=== PATIENT | male | born 1945 | race Caucasian/White ===

== ENCOUNTER 2019-04-15 09:19 | Inpatient (IN) | payer OTHER ==
[~2019-04-15] VITALS: Ht 175.3 cm; Wt 130.5 kg
--- NOTE | 2019-04-15 09:37 | NUR ---
PT EUSEBIO GUADALUPE FROM [place]. AWOKE THIS AM AT 0300 WITH DIZZINESS AND SOB WITH PROFUSE DIAPHORESIS. PT DENIES BLACK OR DARK STOOLS. PER EMS, PT HAD 2 BOUTS OF HEMATAEMESIS (APPROX 600CC). PT HAS NOT VOMITED SINCE ARRIVAL TO ER. CAME WITH TWO PIV'S IN PLACE ([facility] PT DIZZY UPON TRANSFER [facility] TO [facility]. NOW RESTING IN BED. DENIES PAIN, DENIES DIZZINESS. HAS USED TO URINAL TO VOID. CONNECTED TO MONITOR. VSS. NOT HYPOTENSIVE OR TACHYCARDIC AT THIS TIME. HR 80, BP 111/54. PT REQUESTING WATER. THIS RN INFORMED PT MD WILL MAKE THAT DECISION. MED REC COMPLETED TO THE BEST OF THIS RN'S ABILITY. PT DENIES FURTHER NEEDS AT THIS TIME. RECEIVED 1.5 L FLUID AT THE [place] AND THEY STARTED AN IV DRIP OF PANTOPROZOLE WITH WHICH HE ARRIVED UNFINISHED.
[2019-04-15] MEDS ORDERED: PANTOPRAZOLE 80 MG in SODIUM CHLORIDE 0.9% 50 ML IVPB ONE (09:39)
[2019-04-15] MEDS ORDERED: CHLO25TA PO (09:47)
[2019-04-15] MEDS ORDERED: TESTOSTERONE (09:47)
[2019-04-15] MEDS ORDERED: IMIQUIMOD (09:47)
[2019-04-15] MEDS ORDERED: SIMV40TA3 PO (09:47)
[2019-04-15] MEDS ORDERED: GUAI200T37 PO (09:47)
[2019-04-15] MEDS ORDERED: CHOL10002 PO (09:47)
[2019-04-15] MEDS ORDERED: METF500T17 PO (09:47)
[2019-04-15] MEDS ORDERED: CLOP75TA PO (09:47)
[2019-04-15] MEDS ORDERED: FLUN25SP NAS (09:47)
[2019-04-15] MEDS ORDERED: CARV-39 PO (09:47)
[2019-04-15] MEDS ORDERED: EPINEPHRINE (09:47)
--- NOTE | 2019-04-15 09:57 | NUR ---
PT STATES HE IS UNCOMFORTABLE AND WANTS TO SIT ON EDGE OF BED. HELPED TO DO SO. IMMEDIATELY DIAPHORETIC AND PALE. MD AT BEDSIDE ASSESSING PT. PT HELPED TO LAY BACK DOWN. PROVIDED WITH ICE CHIPS THESE WERE OKAY'D BY . PT NOW RESTING ON GURNEY. CALL LIGHT IN REACH. EDUCATED ON IMPORTANCE OF NOT GETTING OOB WITHOUT HELP. CONNECTED TO MONITOR. VSS.
[2019-04-15 09:58] LABS: BASOPHILS # (AUTO) 0.06 x10^3/uL (0-0.1); BASOPHILS % (AUTO) 1 % (0-1); EOSINOPHILS % (AUTO) 0 % (1-7); LYMPHOCYTES # (AUTO) 1.15 x10^3/uL (1-3.4); LYMPHOCYTES % (AUTO) 10 % (22-44); MD NO; MEAN PLATELET VOLUME 8.6 fL (7.4-10.4); MONOCYTES # (AUTO) 0.17 x10^3/uL (0.2-0.8); MONOCYTES % (AUTO) 2 % (2-9); NEUTROPHILS # (AUTO) 10.09 x10^3/uL (1.8-6.8); NEUTROPHILS % (AUTO) 88 % (42-75); PLATELET COUNT 221 x10^3/uL (130-400); RED BLOOD COUNT 3.87 x10^6/uL (4.38-5.82); RED CELL DISTRIBUTION WIDTH 14.4 % (9.4-14.8)
[2019-04-15] MEDS ORDERED: SODIUM CHLORIDE FLUSH 10ML SYR IVF ONE (10:00)
[2019-04-15] MEDS ORDERED: SODIUM CHLORIDE 0.9% 1,000ML IVBOLUS ONE ×3 (10:00→12:30)
--- NOTE | 2019-04-15 10:04 | NUR ---
MEDICATIONS REQUESTED FROM PHARMACY.
[2019-04-15 10:08] LABS: INTERNATIONAL NORMALIZED RATIO 1.15 (0.93-1.1); PROTHROMBIN TIME 12.2 Seconds (9.6-11.5)
[2019-04-15 10:12] LABS: ALANINE AMINOTRANSFERASE 33 U/L (12-78); ALBUMIN 3.2 g/dL (3.4-5.0); ANION GAP 9 mmol/L (5-15); CALCIUM 8.1 mg/dL (8.5-10.1); CHLORIDE 105 mmol/L (98-107)
[2019-04-15 10:14] LABS: ALKALINE PHOSPHATASE 41 U/L (45-117); BILIRUBIN,TOTAL 0.7 mg/dL (0.2-1.0); CREATININE 1.88 mg/dL (0.7-1.3); TOTAL PROTEIN 5.5 g/dL (6.4-8.2)
[2019-04-15] MEDS ORDERED: GLUCAGON 1 MG IVPush ONE (10:18)
[2019-04-15] MEDS ORDERED: GLUCAGON 1 MG ONE (10:37)
[2019-04-15] MEDS: PANTOPRAZOLE 80 MG in SODIUM CHLORIDE 0.9% 100 ML IV SCH ×3 (10:45→20:19)
--- NOTE | 2019-04-15 10:54 | NUR ---
PT MEDICATED PER [facility]AR. RESTING ON GURNEY. HELPED TO REPOSITION. CONNECTED TO MONITOR. VSS WITH OCASSIONAL HYPOTENTION. AWARE. SECOND LITER BEING INFUSED NOW. PT PROVIDED WITH MORE ICE CHIPS. DENIES FURTHER NEEDS.
--- NOTE | 2019-04-15 11:38 | NUR ---
PT RESTING ON BENJAMIN. VALORIE. VSS. CALL LIGHT IN REACH.
--- NOTE | 2019-04-15 13:08 | NUR ---
PT RESTING ON GURNEY. VSS. NADN. DENIES NEEDS. HAD BM EARLIER- SUNG NOTED. AWARE.
--- NOTE | 2019-04-15 13:11 | NUR ---
THIRD LITER STARTED NOW.
[2019-04-15 13:38] LABS: MEAN CORPUSCULAR HEMOGLOBIN 31.2 pg (27.5-34.5); MEAN CORPUSCULAR VOLUME 94.4 fL (81-97); MEAN PLATELET VOLUME 8.7 fL (7.4-10.4); PLATELET COUNT 193 x10^3/uL (130-400); RED BLOOD COUNT 3.38 x10^6/uL (4.38-5.82); RED CELL DISTRIBUTION WIDTH 14.3 % (9.4-14.8)
[2019-04-15] MEDS ORDERED: SODIUM CHLORIDE 0.9% 1,000 ML IV SCH (13:55)
[2019-04-15] MEDS ORDERED: ONDANSETRON 2MG/ML, 2ML IVPush PRN (14:00)
[2019-04-15] MEDS ORDERED: ACETAMINOPHEN 325 MG TABLET PO PRN (14:00)
[2019-04-15 14:15] LABS: BASOPHILS # (AUTO) 0.02 x10^3/uL (0-0.1); BASOPHILS % (AUTO) 0 % (0-1); EOSINOPHILS % (AUTO) 0 % (1-7); LYMPHOCYTES # (AUTO) 1.13 x10^3/uL (1-3.4); LYMPHOCYTES % (AUTO) 13 % (22-44); MD SCAN; MONOCYTES # (AUTO) 0.05 x10^3/uL (0.2-0.8); MONOCYTES % (AUTO) 1 % (2-9); NEUTROPHILS % (AUTO) 87 % (42-75)
--- NOTE | 2019-04-15 14:20 | NUR ---
REPORT GIVEN TO TARYN CLEMENS.
[2019-04-15 15:05] VITALS: BP 122/67
[2019-04-15] MEDS ORDERED: MAGNESIUM SULFATE PMX 2GM/50ML 50 ML IV ONE (17:00)
[2019-04-15] MEDS ORDERED: POTASSIUM PHOSPHATE 44 MEQ in SODIUM CHLORIDE 0.9% 500 ML IV ONE (17:00)
[2019-04-15] MEDS ORDERED: LORazepam 0.5MG TABLET PO PRN (17:30)
[2019-04-15] MEDS ORDERED: LORazepam 1MG TABLET PO PRN (17:30)
[2019-04-15] MEDS ORDERED: LORazepam 2 MG/ML, 1ML IV PRN ×3 (17:30)
[2019-04-15] MEDS: INSULIN LISPRO 100 UNITS/ML, PEN SQ-INSULIN SCH ×2 (17:52→20:20)
[2019-04-15] MEDS: DIAZEPAM 5 MG TABLET PO SCH (18:42)
[2019-04-15 19:31] VITALS: BP 130/73
[2019-04-16 01:24] VITALS: BP 129/90
[2019-04-16] MEDS: DIAZEPAM 5 MG TABLET PO SCH ×3 (02:00→18:15)
[2019-04-16 02:26] LABS: BASOPHILS # (AUTO) 0.06 x10^3/uL (0-0.1); BASOPHILS % (AUTO) 0 % (0-1); EOSINOPHILS % (AUTO) 0 % (1-7); LYMPHOCYTES # (AUTO) 1.36 x10^3/uL (1-3.4); LYMPHOCYTES % (AUTO) 10 % (22-44); MD NO; MEAN CORPUSCULAR HEMOGLOBIN 31.6 pg (27.5-34.5); MEAN CORPUSCULAR HGB CONC 33.8 g/dL (33.2-36.2); MEAN CORPUSCULAR VOLUME 93.4 fL (81-97); MEAN PLATELET VOLUME 8.3 fL (7.4-10.4); MONOCYTES # (AUTO) 0.73 x10^3/uL (0.2-0.8); MONOCYTES % (AUTO) 6 % (2-9); NEUTROPHILS % (AUTO) 84 % (42-75); PLATELET COUNT 148 x10^3/uL (130-400); RED BLOOD COUNT 3.05 x10^6/uL (4.38-5.82); RED CELL DISTRIBUTION WIDTH 14.9 % (9.4-14.8)
[2019-04-16 02:29] LABS: ALANINE AMINOTRANSFERASE 27 U/L (12-78); ALBUMIN 3.4 g/dL (3.4-5.0); ANION GAP 9 mmol/L (5-15); CALCIUM 8.3 mg/dL (8.5-10.1); CHLORIDE 111 mmol/L (98-107); CREATININE 1.53 mg/dL (0.7-1.3)
[2019-04-16 02:31] LABS: ALKALINE PHOSPHATASE 34 U/L (45-117); BILIRUBIN,TOTAL 0.5 mg/dL (0.2-1.0); TOTAL PROTEIN 5.4 g/dL (6.4-8.2)
[2019-04-16] MEDS: INSULIN LISPRO 100 UNITS/ML, PEN SQ-INSULIN SCH ×4 (07:00→21:35)
[2019-04-16 07:10] VITALS: BP 146/87
[2019-04-16] MEDS ORDERED: MIDAZOLAM 1 MG/ML, 2ML ONE (07:58)
[2019-04-16] MEDS ORDERED: FENTANYL PF 100 MCG/2ML ONE (07:58)
[2019-04-16] MEDS ORDERED: PROMETHAZINE 25 MG/ML, 1ML IV PRN (08:00)
[2019-04-16] MEDS ORDERED: OXYcodone 5 MG/5 ML ORAL.SOL UDC PO PRN (08:00)
[2019-04-16] MEDS ORDERED: HYDROmorphone 2 MG/ML, 1ML IVPush PRN (08:00)
[2019-04-16] MEDS ORDERED: FENTANYL PF 100 MCG/2ML IV PRN (08:00)
[2019-04-16] MEDS ORDERED: ONDANSETRON 2MG/ML, 2ML IV PRN (08:00)
[2019-04-16] MEDS ORDERED: PROPOFOL 10 MG/ML, 20ML ONE (09:03)
[2019-04-16] MEDS ORDERED: EPINEPHRINE SYRINGE 0.1 MG/ML, 10ML ONE (09:39)
[2019-04-16] MEDS: PANTOPRAZOLE 80 MG in SODIUM CHLORIDE 0.9% 100 ML IV SCH ×2 (11:40→21:33)
[2019-04-16 13:32] VITALS: BP 118/73
[2019-04-16 19:33] VITALS: BP 117/60
[2019-04-16] MEDS ORDERED: INSULIN GLARGINE 100 UNITS/ML, PEN SQ-INSULIN SCH (21:00)
[2019-04-16] MEDS: THIAMINE 100MG TABLET PO SCH (21:33)
[2019-04-17] MEDS: DIAZEPAM 5 MG TABLET PO SCH ×2 (01:57→02:00)
[2019-04-17 02:05] VITALS: BP 125/82
[2019-04-17 06:13] LABS: ANION GAP 7 mmol/L (5-15); CALCIUM 7.8 mg/dL (8.5-10.1); CHLORIDE 112 mmol/L (98-107); CREATININE 1.41 mg/dL (0.7-1.3)
[2019-04-17 06:15] LABS: BASOPHILS # (AUTO) 0.03 x10^3/uL (0-0.1); BASOPHILS % (AUTO) 0 % (0-1); EOSINOPHILS # (AUTO) 0.02 x10^3/uL (0-0.4); EOSINOPHILS % (AUTO) 0 % (1-7); LYMPHOCYTES # (AUTO) 1.82 x10^3/uL (1-3.4); LYMPHOCYTES % (AUTO) 21 % (22-44); MD NO; MEAN CORPUSCULAR HEMOGLOBIN 31.8 pg (27.5-34.5); MEAN CORPUSCULAR HGB CONC 33.9 g/dL (33.2-36.2); MEAN CORPUSCULAR VOLUME 93.7 fL (81-97); MEAN PLATELET VOLUME 8.6 fL (7.4-10.4); MONOCYTES # (AUTO) 0.53 x10^3/uL (0.2-0.8); MONOCYTES % (AUTO) 6 % (2-9); NEUTROPHILS # (AUTO) 6.47 x10^3/uL (1.8-6.8); NEUTROPHILS % (AUTO) 73 % (42-75); PLATELET COUNT 141 x10^3/uL (130-400); RED CELL DISTRIBUTION WIDTH 15.2 % (9.4-14.8)
[2019-04-17] MEDS: PANTOPRAZOLE 80 MG in SODIUM CHLORIDE 0.9% 100 ML IV SCH ×2 (06:37→16:27)
[2019-04-17] MEDS: INSULIN LISPRO 100 UNITS/ML, PEN SQ-INSULIN SCH ×4 (07:00→20:00)
[2019-04-17 07:39] VITALS: BP 131/84
[2019-04-17] MEDS: THIAMINE 100MG TABLET PO SCH ×2 (08:31→19:59)
[2019-04-17] MEDS ORDERED: LIDODERM 5% PATCH TD ONE (09:00)
[2019-04-17 13:03] VITALS: BP 153/68
[2019-04-17] MEDS: metFORMIN 500 MG TABLET PO SCH (16:27)
[2019-04-17] MEDS ORDERED: DIPHENHYDRAMINE 25 MG CAPSULE PO PRN (18:30)
[2019-04-17 20:13] VITALS: BP 104/64
[2019-04-17] MEDS ORDERED: LIDODERM REMOVE PATCH NOTE XX ONE (21:00)
[2019-04-18] MEDS: PANTOPRAZOLE 80 MG in SODIUM CHLORIDE 0.9% 100 ML IV SCH (02:23)
[2019-04-18 02:31] VITALS: BP 118/57
[2019-04-18 07:27] VITALS: BP 119/72
[2019-04-18 08:13] LABS: BASOPHILS # (AUTO) 0.02 x10^3/uL (0-0.1); BASOPHILS % (AUTO) 0 % (0-1); EOSINOPHILS # (AUTO) 0.08 x10^3/uL (0-0.4); EOSINOPHILS % (AUTO) 1 % (1-7); LYMPHOCYTES # (AUTO) 1.34 x10^3/uL (1-3.4); LYMPHOCYTES % (AUTO) 22 % (22-44); MD NO; MEAN CORPUSCULAR HEMOGLOBIN 31.4 pg (27.5-34.5); MEAN CORPUSCULAR HGB CONC 33.2 g/dL (33.2-36.2); MEAN CORPUSCULAR VOLUME 94.4 fL (81-97); MEAN PLATELET VOLUME 8.3 fL (7.4-10.4); MONOCYTES # (AUTO) 0.44 x10^3/uL (0.2-0.8); MONOCYTES % (AUTO) 7 % (2-9); NEUTROPHILS # (AUTO) 4.22 x10^3/uL (1.8-6.8); NEUTROPHILS % (AUTO) 69 % (42-75); PLATELET COUNT 143 x10^3/uL (130-400); RED BLOOD COUNT 2.55 x10^6/uL (4.38-5.82); RED CELL DISTRIBUTION WIDTH 15.1 % (9.4-14.8)
[2019-04-18 08:15] LABS: CHLORIDE 109 mmol/L (98-107)
[2019-04-18 08:20] LABS: ANION GAP 6 mmol/L (5-15); CALCIUM 8.2 mg/dL (8.5-10.1); CREATININE 1.33 mg/dL (0.7-1.3)
[2019-04-18] MEDS: metFORMIN 500 MG TABLET PO SCH (08:25)
[2019-04-18] MEDS: THIAMINE 100MG TABLET PO SCH (08:25)
[2019-04-18] MEDS: INSULIN LISPRO 100 UNITS/ML, PEN SQ-INSULIN SCH (08:26)
[2019-04-18] MEDS ORDERED: GABA300C PO (08:39)
[2019-04-18] MEDS ORDERED: METF500T PO (08:39)
[2019-04-18] MEDS ORDERED: PANT40TA3 PO (08:39)
[2019-04-18] MEDS ORDERED: POTASSIUM CHLORIDE 20 MEQ TAB.ER.PRT PO ONE (09:00)
== END 2019-04-18 10:15 | disposition home or self-care (01) | DRG 377 ==
LOC: ED 10:37 → SUATTDRO 13:27 → EDIP 13:55 → 4WST 14:39 → DCLOUNGE 04-18 10:00
PROVIDERS: ADMIT Hospitalist; ATTEND Hospitalist
PROC: 0W3P8ZZ Control Bleeding in Gastrointestinal Tract, Via Natural or Artificial Opening Endoscopic (ICD-10-PCS; principal; 2019-04-16 11:00)
DX: K25.4 Chronic or unspecified gastric ulcer with hemorrhage (principal); N17.0 Acute kidney failure with tubular necrosis; D62 Acute posthemorrhagic anemia; E87.2 Acidosis; T39.395A Adverse effect of other nonsteroidal anti-inflammatory drugs [NSAID], initial encounter; G47.33 Obstructive sleep apnea (adult) (pediatric); I35.0 Nonrheumatic aortic (valve) stenosis; E78.5 Hyperlipidemia, unspecified; M54.30 Sciatica, unspecified side; E11.9 Type 2 diabetes mellitus without complications; E11.41 Type 2 diabetes mellitus with diabetic mononeuropathy; E11.65 Type 2 diabetes mellitus with hyperglycemia; F10.20 Alcohol dependence, uncomplicated; F41.9 Anxiety disorder, unspecified; I10 Essential (primary) hypertension; I48.91 Unspecified atrial fibrillation; Z96.653 Presence of artificial knee joint, bilateral; I69.30 Unspecified sequelae of cerebral infarction; Z79.82 Long term (current) use of aspirin; Z98.1 Arthrodesis status; Y92.89 Other specified places as the place of occurrence of the external cause
CPT/HCPCS: 36415; 80048; 80053; 82962; 83036; 83605; 83690; 83735; 84100; 85014; 85018; 85025; 85610; 85730; 86850; 86900; 87338; 94660; 96361; 96374; G0378; J2250; J2704; J3010; C9113; J1610; J1815; J3475; J7030; J7040; Q0163; Q0177